=== PATIENT | male | born 1970 | race Caucasian/White ===

== ENCOUNTER 2023-01-03 10:39 | Observation (INO) | payer SELFPAY ==
[2023-01-03 11:43] LABS: Troponin I Less than 0.010 ng/mL (< 0.028)
[2023-01-03] MEDS ORDERED: Senokot S 8.6-50 MG TAB PO PRN (11:50)
[2023-01-03] MEDS ORDERED: Bisacodyl 5 MG TAB PO PRN (11:50)
[2023-01-03] MEDS ORDERED: Bisacodyl 10 MG SUPP PR PRN (11:50)
[2023-01-03] MEDS ORDERED: Acetaminophen 500 MG TAB PO PRN (11:54)
[2023-01-03 12:00] VITALS: BMI 28.8
[2023-01-03] MEDS ORDERED: Famotidine 20 MG TAB PO SCH (13:00)
[2023-01-03 14:38] LABS: Troponin I Less than 0.010 ng/mL (< 0.028)
[2023-01-03] MEDS: HYDROcodone/Acetaminophen 10/325 mg Tablet PO PRN (20:47)
[2023-01-04 05:02] LABS: #Eosinphils 0.3 thou/uL (0.0-0.7); #Monocytes 0.5 thou/uL (0.11-0.59); #Neutrophils 4.6 thou/uL (1.40-6.50); %Basophils 0.5 % (0.0-1.0); %Eosinophils 4.4 % (0.0-10.0); %Lymphocytes 26.6 % (21.0-51.0); %Monocytes 7.2 % (0.0-10.0); %Neutrophils 61.3 % (42.0-75.0); Mean Corpuscular HGB CONC 33.2 g/dL (32.0-36.0); Mean Corpuscular Hemoglobin 30.6 pg (27.0-31.0); Mean Corpuscular Volume 92.4 fl (78.0-98.0); Mean Platelet Volume 6.3 fL (7.4-10.4); Platelet Count 201 10x3/uL (130-400); Red Blood Cell (RBC) Count 5.24 mill/uL (4.70-6.10); White Blood Cell (WBC) Count 7.4 10x3/uL (4.8-10.8)
[2023-01-04 05:36] LABS: Anion Gap 14 mmol/L (10-20); BUN (Urea Nitrogen) 23 mg/dL (8.4-25.7); Calc. Creatinine Clearance 81 mL/min (70-130); Calcium 9.1 mg/dL (7.8-10.44); Carbon Dioxide 22 mmol/L (22-29); Chloride 108 mmol/L (98-107); Estimated GFR 67; Glucose 103 mg/dL (70-105); Potassium 4.5 mmol/L (3.5-5.1); Sodium 139 mmol/L (136-145)
[2023-01-04 08:04] VITALS: BP 136/71; TEMP 98.1
[2023-01-04] MEDS: HYDROcodone/Acetaminophen 10/325 mg Tablet PO PRN (08:40)
== END 2023-01-04 11:35 | disposition home or self-care (01) ==
LOC: 2SW 10:48
PROVIDERS: ADMIT Internal Medicine; ATTEND Internal Medicine
DX: R07.81 Pleurodynia (principal); R10.12 Left upper quadrant pain; R10.13 Epigastric pain; R00.1 Bradycardia, unspecified; I10 Essential (primary) hypertension; F17.200 Nicotine dependence, unspecified, uncomplicated; Z20.822 Contact with and (suspected) exposure to COVID-19
CPT/HCPCS: 36415; 76705; 80048; 85025; G0378; U0003; U0005

== ENCOUNTER 2023-07-10 11:40 | Emergency (ER) | payer SELFPAY ==
[2023-07-10 12:11] LABS: %Basophils 0.9 % (0.0-1.0); %Eosinophils 4.5 % (0.0-10.0); %Lymphocytes 18.1 % (21.0-51.0); %Monocytes 11.6 % (0.0-10.0); %Neutrophils 64.5 % (42.0-75.0); Hematocrit 46.8 % (42.0-52.0); Mean Corpuscular HGB CONC 34.2 g/dL (32.0-36.0); Mean Corpuscular Hemoglobin 30.4 pg (27.0-31.0); Mean Corpuscular Volume 88.8 fl (78.0-98.0); Mean Platelet Volume 8.7 fL (7.4-10.4); Platelet Count 122 10x3/uL (130-400); Red Blood Cell (RBC) Count 5.27 mill/uL (4.70-6.10); White Blood Cell (WBC) Count 5.4 10x3/uL (4.8-10.8)
[2023-07-10 12:12] LABS: #Basophils 0.1 thou/uL (0.0-0.2); #Eosinphils 0.2 thou/uL (0.0-0.7); #Monocytes 0.6 thou/uL (0.11-0.59); #Neutrophils 3.5 thou/uL (1.40-6.50)
[2023-07-10 12:50] LABS: ALT (SGPT) 31 U/L (8-55); AST (SGOT) 30 U/L (5-34); Albumin 4.1 g/dL (3.5-5.0); Alkaline Phosphatase 71 U/L (40-110); Anion Gap 14 mmol/L (10-20); BUN (Urea Nitrogen) 16 mg/dL (8.4-25.7); Bilirubin, Total 0.5 mg/dL (0.2-1.2); Calc. Creatinine Clearance 0 mL/min (70-130); Calcium 8.8 mg/dL (7.8-10.44); Carbon Dioxide 20 mmol/L (22-29); Chloride 108 mmol/L (98-107); Estimated GFR 70; Globulin 2.7 g/dL (2.4-3.5); Glucose 113 mg/dL (70-105); Lipase 32 U/L (8-78); Magnesium 1.9 mg/dL (1.6-2.6); Potassium 4.1 mmol/L (3.5-5.1); Protein, Total 6.8 g/dL (6.0-8.3); Sodium 138 mmol/L (136-145)
[2023-07-10 12:53] LABS: Troponin I Less than 0.010 ng/mL (< 0.028)
[2023-07-10] MEDS ORDERED: Ketorolac Tromethamine 30 MG/ML VIAL ONE (13:45)
[2023-07-10 14:04] LABS: Bacteria/HPF None Seen HPF (None Seen); Bilirubin Negative (Negative); Blood, Urine Negative (Negative); CAUTI Indications for Culture Pelvic or flank pain; Clarity Clear (Clear); Glucose, Urine (Dipstick) Normal (Negative); Ketone, Urine Trace mg/dL (Negative); Leukocyte Negative Leu/uL (Negative); Nitrite Negative (Negative); Protein, Urine (Dipstick) 50 mg/dL (Neg-Trace); RBC/HPF 0-3 HPF (0-3); Specific Gravity, Urine 1.043 (1.002-1.036); Squamous Epithelial 0-3 HPF (0-3); WBC/HPF 0-3 HPF (0-3)
[2023-07-10 14:07] LABS: Urine Culture Reflex No No
== END 2023-07-10 14:28 | disposition home or self-care (01) ==
LOC: ERS 11:40
DX: R07.9 Chest pain, unspecified (principal); N43.3 Hydrocele, unspecified; N50.812 Left testicular pain; M54.9 Dorsalgia, unspecified; F17.210 Nicotine dependence, cigarettes, uncomplicated
CPT/HCPCS: 71045; 76870; 80053; 81001; 83690; 83735; 83880; 84484; 85025; 93005; 93976; 96374; J1885

== ENCOUNTER 2024-11-06 07:12 | Inpatient (IN) | payer OTHER ==
[2024-11-06] MEDS ORDERED: fentaNYL 50 mcg/mL 1 mL Vial ONE (09:52)
[2024-11-06] MEDS ORDERED: Lisinopril 2.5 MG TAB ONE (10:09)
[2024-11-06] MEDS ORDERED: Acetaminophen 325 MG TAB ONE (10:15)
[2024-11-06 10:34] LABS: Hematocrit 45.5 % (42.0-52.0); Hemoglobin 15.4 g/dL (14.0-18.0); Mean Corpuscular HGB CONC 33.8 g/dL (32.0-36.0); RBC Distribution Width 13.3 % (11.5-14.5)
[2024-11-06 10:41] LABS: #Basophils 0.03 10x3/uL (0.0-0.2); %Basophils 0.3 % (0.0-1.0); %Eosinophils 1.4 % (0.0-10.0); %Lymphocytes 13.6 % (21.0-51.0); %Monocytes 4.8 % (0.0-10.0); %Neutrophils 79.5 % (42.0-75.0); Mean Corpuscular Hemoglobin 29.9 pg (27.0-31.0); Mean Corpuscular Volume 88.3 fL (78.0-98.0); Mean Platelet Volume 8.9 fL (7.4-10.4); Platelet Count 138 10x3/uL (130-400); Red Blood Cell (RBC) Count 5.15 mill/uL (4.70-6.10)
[2024-11-06 10:51] LABS: ALT (SGPT) 62 U/L (8-55); AST (SGOT) 204 U/L (5-34); Albumin 3.5 g/dL (3.5-5.0); Alkaline Phosphatase 65 U/L (40-110); Anion Gap 11 mmol/L (10-20); BUN (Urea Nitrogen) 12 mg/dL (8.4-25.7); Bilirubin, Total 0.8 mg/dL (0.2-1.2); Calc. Creatinine Clearance 0 mL/min (70-130); Calcium 8.5 mg/dL (7.8-10.44); Carbon Dioxide 22 mmol/L (22-29); Cardiac Risk 5.6 (Less than 4.5); Chloride 109 mmol/L (98-107); Cholesterol 191 mg/dl (< 200 Desired); Estimated GFR 96; Globulin 2.8 g/dL (2.4-3.5); Glucose 117 mg/dL (70-105); HDL Cholesterol 34 mg/dL (>60 Neg Risk); LDL Cholesterol, Calculated 142 mg/dL; Potassium 4.5 mmol/L (3.5-5.1); Protein, Total 6.3 g/dL (6.0-8.3); Sodium 137 mmol/L (136-145); Triglycerides 74 mg/dL (Less than 150)
[2024-11-06 11:24] LABS: Troponin I 43.993 ng/mL (< 0.028)
[2024-11-06] MEDS: Sodium Chloride 0.9% 1,000 ML IV SCH (11:30)
[2024-11-06 12:00] VITALS: BMI 29.0
[2024-11-06] MEDS: fentaNYL 50 mcg/mL 1 mL Vial SLOW IVP SCH (13:43)
[2024-11-06] MEDS: Lisinopril 5 MG TAB PO SCH (13:44)
[2024-11-06] MEDS: fentaNYL 50 mcg/mL 1 mL Vial SLOW IVP PRN (13:55)
[2024-11-06] MEDS ORDERED: Iopamidol 370 76% 100 ML VIAL ONE (14:51)
[2024-11-06 16:22] LABS: Troponin I 118.873 ng/mL (< 0.028)
[2024-11-06] MEDS: Atorvastatin Calcium 40 MG TAB PO SCH (20:17)
[2024-11-06] MEDS: TICAGRELOR 90 MG TABLET PO SCH (20:18)
[2024-11-06] MEDS: Acetaminophen 325 MG TAB PO PRN (20:21)
[2024-11-07] MEDS: Pantoprazole 40 MG VIAL IVP SCH (04:00)
[2024-11-07] MEDS: Ondansetron PF 4 MG/2 ML Vial IVP SCH (04:00)
[2024-11-07 05:12] LABS: Troponin I 79.493 ng/mL (< 0.028)
[2024-11-07] MEDS: Lisinopril 5 MG TAB PO SCH (08:12)
[2024-11-07] MEDS: Aspirin 81 mg Enteric Coated Tablet PO SCH (08:13)
[2024-11-07] MEDS: Famotidine 20 MG TAB PO SCH (20:44)
[2024-11-07] MEDS: fentaNYL 50 mcg/mL 1 mL Vial SLOW IVP SCH (22:43)
[2024-11-08] MEDS: FLU (Fluarix Triv) TS24-25(6MOS UP)/PF 45 MCG/0.5 ML Syringe IM ONE (08:53)
[2024-11-08] MEDS: Enoxaparin 40 MG (0.4 mL) SYRINGE SC SCH (08:54)
[2024-11-08 12:03] VITALS: TEMP 99
[2024-11-08] MEDS: Clopidogrel Bisulfate 300 MG TAB PO SCH (13:56)
[2024-11-08] MEDS: Lisinopril 2.5 MG TAB PO SCH (13:56)
[2024-11-08 13:57] VITALS: BP 138/81
[2024-11-09] MEDS ORDERED: Lisinopril 5 MG TAB PO SCH (09:00)
[2024-11-09] MEDS ORDERED: Clopidogrel Bisulfate 75 MG TAB PO SCH (09:00)
== END 2024-11-08 15:08 | disposition home or self-care (01) | DRG 322 ==
LOC: CCL 07:12 → EDSTATUS 09:39 → CCU 11:10 → PCU 11-07 10:40
PROVIDERS: ADMIT Internal Medicine Cardiovascular Disease; ATTEND Internal Medicine Cardiovascular Disease
PROC: 4A023N7 Measurement of Cardiac Sampling and Pressure, Left Heart, Percutaneous Approach (ICD-10-PCS; principal; 2024-11-06)
PROC: 027034Z Dilation of Coronary Artery, One Artery with Drug-eluting Intraluminal Device, Percutaneous Approach (ICD-10-PCS; 2024-11-06)
PROC: B2151ZZ Fluoroscopy of Left Heart using Low Osmolar Contrast (ICD-10-PCS; 2024-11-06)
PROC: B2101ZZ Fluoroscopy of Single Coronary Artery using Low Osmolar Contrast (ICD-10-PCS; 2024-11-06)
DX: I21.19 ST elevation (STEMI) myocardial infarction involving other coronary artery of inferior wall (principal); F17.200 Nicotine dependence, unspecified, uncomplicated; M54.9 Dorsalgia, unspecified; E78.5 Hyperlipidemia, unspecified; I10 Essential (primary) hypertension; Z79.82 Long term (current) use of aspirin; Z79.899 Other long term (current) drug therapy
CPT/HCPCS: 36415; 36416; 80053; 80061; 84484; 85025; 85347; 92941; 93005; 93010; 93306; 93458; 93798; 99152; 99153; C1725; C1726; C1769; C1874; C1887; C1894; C9606; J1650; J2405; J2470; J3010; J7030; Q9967